=== PATIENT | male | born 2000 | race Caucasian/White ===

== ENCOUNTER 2020-02-29 00:44 | Emergency (ER) | payer MEDICAID, SELFPAY ==
[2020-02-29 00:52] VITALS: BP 134/86; PULSE 73; RESP 15; TEMP 36.7; O2SAT 97; BMI 21.8
--- NOTE | 2020-02-29 00:58 | CT_ITS ---
PROCEDURE: CT ABDOMEN PELVIS W CON CLINICAL INDICATION: Right-sided abdominal pain with nausea vomiting and constipation COMPARISON: No exams were available for comparison TECHNIQUE: IV Contrast: 75ML OPTIRAY 350 Oral Contrast None Axial images obtained with sagittal and coronal reformats. All CT scans at the facility use one or more dose reduction, viz: automated exposure control, ma/kV adjustment per patient size (including targeted exams where dose is matched to indication, i.e. head), or iterative reconstruction technique. FINDINGS: LOWER THORAX: There is a 4 mm noncalcified nodule in the right lung base ABDOMEN & PELVIS: The liver, spleen, adrenal glands, pancreas, gallbladder, and kidneys have an unremarkable appearance. No evidence of appendicitis intestinal obstruction or free air. There are few small mesenteric lymph nodes nonspecific. No pelvic mass or abnormal fluid collection.. No abdominal wall hernia or hematoma. No acute bony findings. IMPRESSION: No acute finding Dictated by: Kannan Ruiz MD 02/29/2020 05:00 Kannan Ruiz MD in [facility] 02/29/2020 05:00
[2020-02-29 01:11] LABS: Basophils # 0.1 K/mm3 (0-0.2); Basophils % 1.2 % (0.1-2.0); Eosinophils # 0.2 K/mm3 (0.0-0.4); Eosinophils % 3.1 % (0.1-12.0); Hematocrit 42.4 % (42.0-52.0); Hemoglobin 15.2 g/dL (14.1-18.0); Lymphocytes # 2.7 K/mm3 (0.7-4.5); Mean Corpuscular HGB Conc 35.8 g/dL (31.8-35.4); Mean Corpuscular Hemoglobin 32.2 pg (27.0-31.2); Mean Corpuscular Volume 90.2 fl (80-94); Mean Platelet Volume 8.2 fl (7.4-10.4); Microscopic, Urine URINE MICROSCOPIC (MICROSCOPIC); Monocytes # 0.4 K/mm3 (0.1-1.0); Monocytes % 7.2 % (1.7-9.3); Neutrophils # 2.6 K/mm3 (1.8-7.8); Neutrophils % 43.5 % (37.0-80.0); Platelet Count 216 K/mm3 (142-424); Red Blood Count 4.71 M/mm3 (4.60-6.20); Red Cell Distribution Width 13.1 % (11.5-17.5)
[2020-02-29 01:14] LABS: Appearance,Urine CLEAR (Clear); Bilirubin,Urine Negative (Negative); Blood, Urine Negative (Negative); Color,Urine YELLOW (Yellow); Glucose,Urine (UA) Negative (Negative); Ketones,Urine Negative (Negative); Leukocyte Esterase,Urine Negative (Negative); Nitrate,Urine Negative (Negative); Protein,Urine Negative (Negative); Urobilinogen,Urine 0.2 EU/dl (0.2)
[2020-02-29 01:19] LABS: Amorphous Sediment,Urine Trace /lpf
[2020-02-29 01:25] LABS: Alanine Aminotransferase 20 U/L (12-78); Albumin Level 4.7 g/dl (3.5-5.0); Albumin/Globulin Ratio 1.6 (1.1-1.8); Alkaline Phosphatase 53 U/L (38-126); Amylase 71 U/L (30-110); Anion Gap 12.6 mEq/L (5-15); Aspartate Amino Transferase 27 U/L (17-59); Bilirubin,Total 0.5 mg/dl (0.2-1.3); Blood Urea Nitrogen 12 mg/dl (9-20); Calcium 9.2 mg/dl (8.4-10.2); Carbon Dioxide 27 mmol/L (22.0-30.0); Chloride 104 mmol/L (98-107); Creatinine Clearance Estimated 144 mL/min (50-200); Estimated Glomerular Filt Rate 109 ml/min (>60); GFR (African American) 132 ML/MIN (>60); Glucose 144 mg/dl (74-100); Lipase 56 U/L (23-300); Potassium 3.6 mmoL/L (3.5-5.1); Sodium 140 mmol/L (136-145); Total Protein,Serum 7.7 g/dl (6.3-8.2)
[2020-02-29 01:31] LABS: C-Reactive Protein < 0.3 mg/L (0-4)
[2020-02-29 01:34] LABS: Occult Blood,Stool Negative (Negative)
[2020-02-29 01:36] LABS: Erythrocyte Sedimentation Rate 4 mm/hr (0-15)
--- NOTE | 2020-02-29 01:48 | HMH.EDNVD ---
ED Disposition Clinical Impression: Abdominal pain Qualifiers: Abdominal location: right lower quadrant Qualified Code(s): R10.31 - Right lower quadrant pain Disposition: Home, Self-Care Condition on Discharge: Good Instructions: DI for Acute Abdomen Additional Instructions: call pcp for follow up Referrals: Vane Gonzalez [Primary Care Provider] - - Critical Care Critical Care Time: No Attestation: On 02/29/20, the high probability of a clinically significant, sudden or life threatening deterioration of the following system(s) required my full and direct attention, intervention and personal management. The time I documented below is in addition to time spent performing reported procedures but includes the following listed in this critical care notation. Medical Decision Making - Medical Records Medical records reviewed: Yes: I reviewed the patient's medical records. - [place] Inquiry Pt receiving controlled substance: No Vital Signs: 02/29/20 00:52 Temperature 98.0 F Temperature Source Oral Pulse Rate [Right Brachial] 73 Respiratory Rate 15 Blood Pressure [Right Arm] 134/86 Blood Pressure Mean [Right Arm] 102 Blood Pressure Source [Right Arm] Automatic Cuff Blood Pressure Position [Right Arm] Sitting 02 Sat by Pulse Oximetry 97 Oxygen Delivery Method Room Air - Lab Data Lab results reviewed: Yes: I reviewed the patient's lab results. Lab Results 02/29/20 01:04: WBC 6.0, RBC 4.71, Hgb 15.2, Hct 42.4, MCV 90.2, MCH 32.2 H, MCHC 35.8 H, RDW 13.1, Plt Count 216, MPV 8.2, Neut % (Auto) 43.5, Lymph % (Auto) 45.0, [place] % (Auto) 7.2, Eos % (Auto) 3.1, Baso % (Auto) 1.2, Neut # (Auto) 2.6, Lymph # (Auto) 2.7, [place] # (Auto) 0.4, Eos # (Auto) 0.2, Baso # (Auto) 0.1, ESR 4 02/29/20 01:04: Sodium 140, Potassium 3.6, Chloride 104, Carbon Dioxide 27, Anion Gap 12.6, BUN 12, Creatinine 0.90, Estimated Creat Clear 144, Estimated GFR 109, Est GFR ( Amer) 132, Glucose 144 H, Calcium 9.2, Total Bilirubin 0.5, AST 27, ALT 20, Alkaline Phosphatase 53, C-Reactive Protein < 0.3, Total Protein 7.7, Albumin 4.7, Globulin 3.0, Albumin/Globulin Ratio 1.6, Amylase 71, Lipase 56 02/29/20 01:04: Urine Color Yellow, Urine Appearance Clear, Urine pH 7.0, Ur Specific [place] 1.010, Urine Protein Negative, Urine Glucose (UA) Negative, Urine Ketones Negative, Urine Blood Negative, Urine Nitrate Negative, Urine Bilirubin Negative, Urine Urobilinogen 0.2, Ur Leukocyte Esterase Negative, Amorphous Sediment Trace 02/29/20 01:20: Stool Occult Blood Negative Result diagrams: 02/29/20 01:04 02/29/20 01:04 Orders (Tests/Meds): ORDERS Category Date Time Status CT abdomen pelvis w con Stat Cat Scan 02/29/20 00:58 Ordered - CT Data CT Scan: Abdomen, Pelvis Time Received: 01:[address] Reviewed: Yes: I have viewed the radiologist's interpretation Preliminary Findings: Normal/NAD Nausea/Vomiting/Diarrhea HPI - General Chief complaint: Abdominal Pain Stated complaint: Pain in right side,vomiting,legs tingling Time Seen by Provider: 02/29/20 01:15 Mode of Arrival: Family Vehicle Source of Information: Patient, Parent(s), Medical Record Limitations: No Limitations Description of Symptoms (Recalled from ER Triage Doc. by RN): pt was seen for a hernia in the past and was supposed to see surgery about it; but due to miscommunication missed his follow up care. presents tonight after having right low quadrant/right groin pain, that he statesis where his hernia hurts him when it exacerbates. further states he began having vomiting and then chest discomfort followed the vomiting. pt is a&ox4, afebrile, poor historian with own care - History of Present Illness HPI Narrative: rt lower abd pain with vomiting today - hx of prev hernia - reports neg ct at [place] 2 weeks ago complaint: abdominal pain Onset (ago): hour(s) Associated Abdominal Pain: Yes Location of pain: RLQ Severity: moderate Associated symptoms: denies other symptoms
[2020-02-29 02:00] VITALS: BP 112/78; PULSE 73; RESP 16; TEMP 36.6; O2SAT 98
== END 2020-02-29 02:09 | disposition home or self-care (01) ==
PROVIDERS: Emergency Provider Emergency Medicine; PCP Nurse Practitioner Family
DX: R10.31 Right lower quadrant pain (principal)
CPT/HCPCS: 74177; 80053; 81001; 82150; 82272; 83690; 85025; 85651; 86140; 99283; G0328; Q9967

== ENCOUNTER 2021-07-12 19:18 | Emergency (ER) | payer MEDICAID, SELFPAY ==
[2021-07-12 19:19] VITALS: BP 146/110; PULSE 114; RESP 20; TEMP 36.7; O2SAT 96; BMI 28.2
--- NOTE | 2021-07-12 20:01 | CT_ITS ---
PROCEDURE INFORMATION: Exam: CT Abdomen And Pelvis With Contrast Exam date and time: 07/12/2021 8:01 PM Age: 21 years old Clinical indication: Patient HX: Abdominal pain with diarrhea, PT states he noticed blood in stool tonight. HX of ibs. No prior SX to abdomen TECHNIQUE: Imaging protocol: Computed tomography of the abdomen and pelvis with contrast. Total images: 323 Radiation optimization: All CT scans at this facility use at least one of these dose optimization techniques: automated exposure control; mA and/or kV adjustment per patient size (includes targeted exams where dose is matched to clinical indication); or iterative reconstruction. Contrast material: ISOVUE; Contrast volume: 75 ml; Contrast route: IV; COMPARISON: CT ABDOMEN PELVIS W CON 02/29/2020 1:25 AM FINDINGS: Lungs: Visualized lung bases are clear. Heart: Heart size normal. Mediastinal space: The visualized distal esophagus is largely contracted without gross abnormality. Liver: Normal contour. No mass lesions. No intrahepatic biliary ductal dilatation. Gallbladder and bile ducts: Normal. No calcified stones. No ductal dilation. Pancreas: Normal. No inflammatory changes or ductal dilation. Spleen: Normal. No splenomegaly. Adrenal glands: Normal. No adrenal mass. Kidneys and ureters: No acute abnormalities. No hydronephrosis or hydroureter. No urinary tract stones are identified. Stomach and bowel: The stomach is unremarkable. The small bowel is nondilated with no gross abnormality. There are few sigmoid diverticula present without features of diverticulitis. No intraluminal contrast accumulation to suggest active hemorrhage is identified currently. Appendix: The appendix is normal in caliber and demonstrates no evidence of appendicitis. Intraperitoneal space: No free fluid or air. Vasculature: No acute process. No abdominal aortic aneurysm. Lymph nodes: No adenopathy. Urinary bladder: Unremarkable as visualized. Reproductive: Unremarkable as visualized. Bones/joints: No acute osseous abnormalities. Soft tissues: Very small fatty umbilical hernia . No evidence of associated bowel herniation or strangulation. IMPRESSION: 1. No acute findings. 2. Mild sigmoid diverticulosis without diverticulitis. No sites of active GI hemorrhage are identified currently. 3. Very small fatty umbilical hernia . No evidence of associated bowel herniation or strangulation.
[2021-07-12 20:07] LABS: Basophils # 0.2 K/mm3 (0-0.2); Basophils % 1.1 % (0.1-2.0); Eosinophils # 0.1 K/mm3 (0.0-0.4); Eosinophils % 0.6 % (0.1-12.0); Hematocrit 51.4 % (42.0-52.0); Hemoglobin 16.9 g/dL (14.1-18.0); Lymphocytes # 1.7 K/mm3 (0.7-4.5); Lymphocytes % 11.9 % (10-50); Mean Corpuscular HGB Conc 32.9 g/dL (31.8-35.4); Mean Corpuscular Volume 97.4 fl (80-94); Mean Platelet Volume 8.4 fl (7.4-10.4); Monocytes # 0.6 K/mm3 (0.1-1.0); Monocytes % 4.3 % (1.7-9.3); Neutrophils # 11.5 K/mm3 (1.8-7.8); Platelet Count 316 K/mm3 (142-424); Red Blood Count 5.27 M/mm3 (4.60-6.20); White Blood Count 14.1 K/mm3 (4.8-10.8)
--- NOTE | 2021-07-12 20:19 | HMH.EDNVD ---
ED Disposition Clinical Impression: Abdominal pain Qualifiers: Abdominal location: generalized Qualified Code(s): R10.84 - Generalized abdominal pain Disposition: Home, Self-Care Condition on Discharge: Good Instructions: DI for Acute Abdominal Pain Additional Instructions: fluids and call pcp for follow up Referrals: Vane Gonzalez [Primary Care Provider] - - Critical Care Critical Care Time: No Attestation: On 07/12/21, the high probability of a clinically significant, sudden or life threatening deterioration of the following system(s) required my full and direct attention, intervention and personal management. The time I documented below is in addition to time spent performing reported procedures but includes the following listed in this critical care notation. Medical Decision Making - Medical Records Medical records reviewed: Yes: I reviewed the patient's medical records. - Mazin Inquiry Pt receiving controlled substance: No Vital Signs: 07/12/21 19:19 Temperature 98.0 F Temperature Source Oral Pulse Rate [Apical] 114 H Respiratory Rate 20 Blood Pressure [Left Arm] 146/110 H Blood Pressure Mean [Left Arm] 122 Blood Pressure Source [Left Arm] Automatic Cuff Blood Pressure Position [Left Arm] Sitting 02 Sat by Pulse Oximetry 96 Oxygen Delivery Method Room Air - Lab Data Lab results reviewed: Yes: I reviewed the patient's lab results. Lab Results 07/12/21 19:54: WBC 14.1 H, RBC 5.27, Hgb 16.9, Hct 51.4, MCV 97.4 H, MCH 32.0 H, MCHC 32.9, RDW 13.0, Plt Count 316, MPV 8.4, Neut % (Auto) 82.0 H, Lymph % (Auto) 11.9, [place] % (Auto) 4.3, Eos % (Auto) 0.6, Baso % (Auto) 1.1, Neut # (Auto) 11.5 H, Lymph # (Auto) 1.7, [place] # (Auto) 0.6, Eos # (Auto) 0.1, Baso # (Auto) 0.2, ESR 5 07/12/21 19:54: Sodium 139, Potassium 4.1, Chloride 102, Carbon Dioxide 27, Anion Gap 14.1, BUN 16, Creatinine 0.90, Estimated Creat Clear 183, Estimated GFR 107, Est GFR ( Amer) 129, Glucose 127 H, Calcium 9.4, Total Bilirubin 0.6, AST 46, ALT 57, Alkaline Phosphatase 71, C-Reactive Protein 0.4, Total Protein 8.4 H, Albumin 5.1 H, Globulin 3.3 H, Albumin/Globulin Ratio 1.5, Amylase 68, Lipase 45 07/12/21 19:54: Procalcitonin 0.056 Result diagrams: 07/12/21 19:54 07/12/21 19:54 Orders (Tests/Meds): ED MEDICATIONS Generic Name Dose Route Start Last Admin Trade Name Freq PRN Reason Stop Dose Admin Sodium Chloride 1,000 mls @ 999 mls/hr 07/12/21 21:15 Sod Chlor 0.9% 1000ml Bag IV 07/12/21 22:15 .[id number] RANDI Discontinued Medications Generic Name Dose Route Start Last Admin Trade Name Freq PRN Reason Stop Dose Admin Iopamidol 75 ml 07/12/21 20:31 07/12/21 20:31 Iopamidol-370 (76%);100ml Bottle IV 07/12/21 20:32 75 ml ONCE ONE Administration Ketorolac Tromethamine 30 mg 07/12/21 21:11 Ketorolac 30mg/Ml Vial IV 07/12/21 21:12 ONCE ONE Methylprednisolone Sodium Succinate 125 mg 07/12/21 21:11 Methylprednisolone Sod Succ 125mg Vial IV 07/12/21 21:12 ONCE ONE Sodium Chloride 10 ml 07/12/21 20:31 07/12/21 20:31 Sodium Chloride 0.9% 10ml Syr (Rad Only) IV 07/12/21 20:32 10 ml ONCE ONE Administration ORDERS Category Date Time Status Occult Blood,Stool Stat Lab 07/12/21 20:02 Ordered Urinalysis and Microscopic Stat Lab 07/12/21 20:02 Ordered - CT Data CT Scan: Abdomen, Pelvis Time Received: 21:[address] Reviewed: Yes: I have viewed the radiologist's interpretation Preliminary Findings: Normal/NAD Medical Decision Narrative: stable exam and labs with neg ct - will ask pt to see pcp for follow up Nausea/Vomiting/Diarrhea HPI - General Chief complaint: Abdominal Pain Stated complaint: abd pain, blood in stool Time Seen by Provider: 07/12/21 20:20 Mode of Arrival: Ambulatory Source of Information: Patient, Medical Record Limitations: No Limitations Description of Symptoms (Recalled from ER Triage Doc. by RN): Patient states he has a hx of ibs
[2021-07-12 20:21] LABS: Alanine Aminotransferase 57 U/L (12-78); Albumin Level 5.1 g/dl (3.5-5.0); Albumin/Globulin Ratio 1.5 (1.1-1.8); Alkaline Phosphatase 71 U/L (38-126); Amylase 68 U/L (30-110); Anion Gap 14.1 mEq/L (5-15); Aspartate Amino Transferase 46 U/L (17-59); Bilirubin,Total 0.6 mg/dl (0.2-1.3); Blood Urea Nitrogen 16 mg/dl (9-20); Calcium 9.4 mg/dl (8.4-10.2); Carbon Dioxide 27 mmol/L (22.0-30.0); Chloride 102 mmol/L (98-107); Creatinine Clearance Estimated 183 mL/min (50-200); Estimated Glomerular Filt Rate 107 ml/min (>60); GFR (African American) 129 ML/MIN (>60); Globulin 3.3 g/dL (1.3-3.2); Glucose 127 mg/dl (74-100); Lipase 45 U/L (23-300); Potassium 4.1 mmoL/L (3.5-5.1); Sodium 139 mmol/L (136-145); Total Protein,Serum 8.4 g/dl (6.3-8.2)
[2021-07-12 20:27] LABS: C-Reactive Protein 0.4 mg/L (0-4)
[2021-07-12 20:40] LABS: Procalcitonin 0.056 ng/mL (0.0-2.0)
[2021-07-12 20:57] LABS: Erythrocyte Sedimentation Rate 5 mm/hr (0-15)
[2021-07-12 21:27] VITALS: BP 146/100; PULSE 110; RESP 20; TEMP 36.9; O2SAT 99
== END 2021-07-12 21:29 | disposition home or self-care (01) ==
PROVIDERS: Emergency Provider Emergency Medicine; PCP Nurse Practitioner Family
DX: R10.84 Generalized abdominal pain (principal); K58.0 Irritable bowel syndrome with diarrhea
CPT/HCPCS: 74177; 80053; 82150; 83690; 84145; 85025; 85651; 86140; 96365; 96375; 99283; Q9967

== ENCOUNTER 2023-03-05 22:00 | Emergency (ER) | payer MEDICAID, SELFPAY ==
[2023-03-05 22:01] VITALS: BP 144/80; PULSE 81; RESP 17; TEMP 36.9; O2SAT 98; BMI 28.2
--- NOTE | 2023-03-05 22:18 | XR_ITS ---
PROCEDURE INFORMATION: Exam: XR Left Foot Exam date and time: 03/05/2023 10:43 PM Age: 22 years old Clinical indication: Injury or trauma; Fall; Blunt trauma; Lower leg; Left; Patient HX: Bruising noted to lle; Additional info: Injury to leg from ladder TECHNIQUE: Imaging protocol: Radiologic exam of the left foot. Views: 3 or more views. COMPARISON: No relevant prior studies available. FINDINGS: Bones/joints: Mild cortical thickening of 4th proximal metatarsal. No discrete fracture line identified. Normal alignment of foot. Soft tissues: Normal. IMPRESSION: 4th proximal metatarsal cortical thickening without discrete fracture line seen. Can not exclude reaction from underlying stress fracture and/or stress reaction without discrete fracture.
--- NOTE | 2023-03-05 22:18 | XR_ITS ---
PROCEDURE INFORMATION: Exam: XR Left Knee Exam date and time: 03/05/2023 10:43 PM Age: 22 years old Clinical indication: Injury or trauma; Fall; Blunt trauma; Lower leg; Left; Patient HX: Bruising noted to lle; Additional info: Injury to leg from ladder TECHNIQUE: Imaging protocol: Radiologic exam of the left knee. Views: 3 views. COMPARISON: No relevant prior studies available. FINDINGS: Bones/joints: Normal. Soft tissues: Normal. IMPRESSION: No acute findings.
--- NOTE | 2023-03-05 22:18 | XR_ITS ---
PROCEDURE INFORMATION: Exam: XR Left Tibia and Fibula Exam date and time: 03/05/2023 10:43 PM Age: 22 years old Clinical indication: Injury or trauma; Fall; Blunt trauma; Lower leg; Left; Patient HX: Bruising noted to lle; Additional info: Injury to leg from ladder TECHNIQUE: Imaging protocol: Radiologic exam of the left tibia and fibula. Views: 2 views. COMPARISON: No relevant prior studies available. FINDINGS: Bones/joints: Normal. Soft tissues: Normal. IMPRESSION: No acute findings.
--- NOTE | 2023-03-05 22:18 | XR_ITS ---
PROCEDURE INFORMATION: Exam: XR Left Ankle Exam date and time: 03/05/2023 10:43 PM Age: 22 years old Clinical indication: Injury or trauma; Fall; Blunt trauma; Lower leg; Left; Patient HX: Bruising noted to lle; Additional info: Injury to leg from ladder TECHNIQUE: Imaging protocol: Radiologic exam of the left ankle. Views: 3 or more views. COMPARISON: No relevant prior studies available. FINDINGS: Bones/joints: Normal. Soft tissues: Normal. IMPRESSION: No acute findings.
--- NOTE | 2023-03-05 23:11 | HMH.EDGENADL ---
Discharge Plan Disposition Patient Disposition: Home, Self-Care Condition: Good Prescriptions Prescriptions: No Action trazodone 50 mg Tablet 50 mg PO HS PRN (Reason: Insomnia) paroxetine HCl 20 mg Tablet 20 mg PO DAILY Referrals Follow up/Referrals: Vane Gonzalez [Primary Care Provider] - See instructions Activity Restrictions/Add. Instructions Additional Instructions/Restrictions: You were evaluated in the emergency department today. Please keep your leg iced and elevated to reduce pain and swelling. Take Tylenol and ibuprofen at home as needed for the pain. Keep a compressive bandage on your leg to help reduce pain and swelling, but make sure that it is not too tight, as you do not want to cut off blood flow. Follow-up with your primary care provider over the next 2 days for reassessment of your leg. Return to the emergency department for any new or worsening symptoms, such as new numbness, tingling, or significant increase in pain. Clinical Impressions Clinical Impression: Hematoma of left lower leg Instructions Patient Instructions: DI for Leg Pain Discharge ED Provider: Lisha Blanco General Adult HPI General Chief complaint: Extremity Injury, Lower Stated complaint: AO 03/03, left leg pain Time Seen by Provider: 03/05/23 22:23 Mode of Arrival: Ambulatory Source of Information: Patient Limitations: No Limitations Description of Symptoms (Recalled from ER Triage Doc. by RN): 22 M presents with a left lower leg injury that occurred this past 03/03/2023. Patient states he slipped while coming down a ladder and his left left got caught in between the steps of the ladder. Patient reports approximately 5-6 ft. Denies other injuries, hitting his head, or pain anywhere else. Patient has circumfrential erythema and ecchymosis from midcalf down to the dorsum of his foot. Pulses presents x3 to LLE. History of Present Illness HPI narrative: This patient is a 22-year-old male who denies significant past medical history presented to the emergency department for evaluation with concern for left lower leg injury that happened on 03/03/2023. He slipped while climbing down a ladder and his leg got caught in between the steps of a ladder. This was approximate 5 to 6 feet. He did not stand or lose consciousness and denies any other injuries at this time. He states that he only has pain, swelling, and bruising to his left lower leg. He denies any numbness, tingling, or other concerns. He is still able to bear weight and has otherwise been well. Related Data Home Medications Medication Instructions Recorded Confirmed paroxetine HCl 20 mg tablet 20 mg PO DAILY Mood 03/05/23 03/05/23 trazodone 50 mg tablet 50 mg PO HS PRN Insomnia 03/05/23 03/05/23 Allergies Allergy/AdvReac Type Severity Reaction Status Date / Time No Known Allergies Allergy Verified 02/29/20 00:57 [facility] Disclaimer: The information contained in this section may have been updated after the patient was seen, as this information can be updated by other users. Medical History Anxiety Depression Surgical History No history of previous surgery Family History Other No significant family history Social History Smoking Status: Never smoker alcohol intake: never current occupational status: employed Travel in the last 8 weeks: None ROS Obtained: Yes All systems reviewed & no additional complaints except as documented Physical Exam General General appearance: alert and in no apparent distress Head Head exam: atraumatic and normocephalic Eye Eye exam: Present normal appearance, PERRL and EOMI ENT ENT exam: Present normal exam, normal oropharynx, mucous membranes moist and normal external
--- NOTE | 2023-03-05 23:18 | PC.NURSE ---
Judd wrap applied to pts Left leg/ankle. Pt given instructions on care and to follow up if any changes in area. CR
[2023-03-05 23:23] VITALS: BP 137/83; PULSE 83; RESP 14; TEMP 36.6; O2SAT 99
== END 2023-03-05 23:25 | disposition home or self-care (01) ==
PROVIDERS: Emergency Provider Emergency Medicine; PCP Nurse Practitioner Family
DX: S80.12XA Contusion of left lower leg, initial encounter (principal); W11.XXXA Fall on and from ladder, initial encounter; F41.9 Anxiety disorder, unspecified; F32.A Depression, unspecified; M79.662 Pain in left lower leg; R22.42 Localized swelling, mass and lump, left lower limb
CPT/HCPCS: 73562; 73590; 73610; 73630; 99285